=== PATIENT | male | born 1985 | race Caucasian/White ===

== ENCOUNTER 2021-07-03 09:24 | Emergency (ER) | payer MEDICAID ==
[2021-07-03 09:33] VITALS: BP 147/72
--- NOTE | 2021-07-03 09:38 | ED Physician Documentation ---
PD HPI HEENT - Stated complaint Stated Complaint: MOUTH PX/SWELLING - Chief complaint Chief Complaint: Heent - History obtained from History obtained from: Patient - History of Present Illness Timing - onset: How many weeks ago (1) Timing - duration: Weeks (1) Timing - details: Gradual onset, Still present Location: Tooth (left lower molar with pain, and now couple days of swelling/worse pain.) Associated symptoms: No: Fever, Congestion, Swollen nodes Similar symptoms before: Diagnosis (dental infections - says has difficulty getting dental appt as limited availability.) Recently seen: Not recently seen Review of Systems Constitutional: denies: Fever, Chills Nose: denies: Rhinorrhea / runny nose, Congestion Throat: denies: Sore throat Respiratory: denies: Cough PD PAST MEDICAL HISTORY - Past Medical History Cardiovascular: None Endocrine/Autoimmune: None - Present Medications Home Medications: Ambulatory Orders Medication Instructions Recorded Confirmed Clindamycin [Cleocin] 300 mg PO TID 7 Days #20 cap 07/03/21 HYDROcod/ACETAM 5/325 [[place] 5/325] 1 ea PO Q6H PRN #18 tablet 07/03/21 Ibuprofen [Motrin] 600 mg PO TID PRN #20 tab 07/03/21 - Allergies Allergies/Adverse Reactions: Allergies Allergy/AdvReac Type Severity Reaction Status Date / Time No Known Drug Allergies Allergy Verified 07/03/21 09:30 - Social History Does the pt smoke?: No Smoking Status: Never smoker PD ED PE NORMAL - Vitals Vital signs reviewed: Yes - General General: Alert and oriented X 3, Well developed/nourished, Other (appears in pain from tooth/mouth area. ) - HEENT HEENT: Ears normal, Pharynx benign. No: Dentition benign (left lower 2nd molar with decay and gum has swelling and tenderness without fluctuance. Tender to percussion. ) Results - Vitals Vitals: Vital Signs - 24 hr 07/03/21 09:31 Temperature 36.9 C Heart Rate 98 Respiratory 16 Rate Blood Pressure 147/72 H O2 Saturation 97 Oxygen O2 Source Room air PD MEDICAL DECISION MAKING - ED course Complexity details: considered differential, d/w patient Departure - Departure Disposition: 01 Home, Self Care Clinical Impression: Dental infection, Acute oral pain Condition: Stable Record reviewed to determine appropriate education?: Yes Instructions: ED Abscess Dental Follow-Up: [facility] [Provider Group] Prescriptions: Clindamycin [Cleocin] 300 mg PO TID 7 Days #20 cap Ibuprofen [Motrin] 600 mg PO TID PRN #20 tab PRN Reason: Pain HYDROcod/ACETAM 5/325 [[place] 5/325] 1 ea PO Q6H PRN #18 tablet PRN Reason: Pain Comments: Clindamycin antibiotic as directed for infection. Ibuprofen 3 times daily for inflammation and pain. Add Tylenol or Hydrocodone for worse pain. Follow up with dentist for more definitive care of the tooth. The prescriptions were transmitted electronically to [facility] pharmacy in [place]. Discharge Date/Time: 07/03/21 10:11
[2021-07-03] MEDS ORDERED: CLINDAMYCIN 150 MG CAPSULE PO STA (09:52)
[2021-07-03] MEDS ORDERED: NAPROXEN 250 MG TABLET PO STA (09:52)
[2021-07-03] MEDS ORDERED: ACETAMINOPHEN 325 MG TABLET PO STA (09:52)
== END 2021-07-03 10:11 | disposition home or self-care (01) ==
LOC: ED 09:24
DX: K04.7 Periapical abscess without sinus (principal); K08.89 Other specified disorders of teeth and supporting structures; K02.9 Dental caries, unspecified
CPT/HCPCS: 99283; A9270

== ENCOUNTER 2021-07-21 05:57 | Emergency (ER) | payer MEDICAID ==
--- NOTE | 2021-07-21 06:19 | ED Physician Documentation ---
History of Present Illness - Stated complaint Stated Complaint: TOOTH PX - Chief complaint Chief Complaint: Heent - History obtained from History obtained from: Patient - Additonal information Additional information: 36-year-old male with history of poor dentition p/w left lower dental pain X 6 months that is progressively worsened over the past couple days. denies fevers, chills change in voice quality, or trismus. +smoker Review of Systems Constitutional: denies: Fever, Chills Throat: reports: Dental pain / toothache. denies: Sore throat Respiratory: denies: Dyspnea Musculoskeletal: reports: Other (no trismus) PD PAST MEDICAL HISTORY - Past Medical History Past Medical History: No Cardiovascular: None Respiratory: None Neuro: None Endocrine/Autoimmune: None GI: None : None HEENT: None Psych: None Musculoskeletal: None Derm: None - Past Surgical History Past Surgical History: No - Present Medications Home Medications: Ambulatory Orders Medication Instructions Recorded Confirmed Ibuprofen [Motrin] 600 mg PO TID PRN #20 tab 07/03/21 07/21/21 Amox/Clav 875/125 [Augmentin 1 tablet PO Q12H 7 Days #14 tablet 07/21/21 875/125 Tab] - Allergies Allergies/Adverse Reactions: Allergies Allergy/AdvReac Type Severity Reaction Status Date / Time No Known Drug Allergies Allergy Verified 07/21/21 06:06 - Social History Does the pt smoke?: No Smoking Status: Never smoker Does the pt drink ETOH?: No Does the pt have substance abuse?: No - Immunizations Immunizations are current?: No - POLST Patient has POLST: No PD ED PE NORMAL - Vitals Vital signs reviewed: Yes - General General: Alert and oriented X 3, Other (anxious appearing) - HEENT HEENT: Atraumatic, PERRL, EOMI, Other (extremely poor dentition. multiple caries. tolerating secretions. nontender with palpation of submentum. ) - Neck Neck: Supple, no meningeal sign - Derm Derm: Normal color, Warm and dry, Other (mild fluctuance along L lower periodontal molar region) - Neuro Neuro: Alert and oriented X 3 Results - Vitals Vitals: Vital Signs - 24 hr 07/21/21 07/21/21 06:04 06:06 Temperature 98.4 C H 36.9 C Heart Rate 88 88 Respiratory 17 17 Rate Blood Pressure 135/94 H 135/94 H O2 Saturation 98 98 Oxygen O2 Source Room air PD MEDICAL DECISION MAKING - ED course ED course: 36-year-old man presents with concern about chronic dental caries with evidence of chronic infection on examination. Offered dental block and pain control but patient declined, requesting only antibiotics. Advised him to follow-up with a dentist immediately. Return precautions given. Departure - Departure Disposition: Home, Self Care Clinical Impression: Dental infection Condition: Good Instructions: Decay Tooth Prescriptions: Amox/Clav 875/125 [Augmentin 875/125 Tab] 1 tablet PO Q12H 7 Days #14 tablet Comments: You are seen in the emergency department for evaluation of chronic dental infection. You need to see a dentist right away. Please take your antibiotics as prescribed and return the emergency department if you have any new or worsening symptoms or other concerns.
[2021-07-21 06:25] VITALS: BP 134/97
== END 2021-07-21 06:24 | disposition home or self-care (01) ==
LOC: ED 05:57
DX: K02.9 Dental caries, unspecified (principal)
CPT/HCPCS: 99282; 99283

== ENCOUNTER 2022-10-28 17:52 | Emergency (ER) | payer OTHER, MEDICAID ==
[2022-10-28] MEDS ORDERED: ACETAMINOPHEN 500 MG TABLET PO STA (18:06)
[2022-10-28] MEDS ORDERED: oxyCODONE 5 MG TABLET PO STA (18:06)
--- NOTE | 2022-10-28 18:07 | ED Physician Documentation ---
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 2 days ago he slipped and landed on his tailbone and had a severe persistent tailbone pain that has not been responsive to ibuprofen. No other injuries. He does note that he has a lot of pain when he defecates. Review of Systems Constitutional: reports: Reviewed and negative Eyes: reports: Reviewed and negative Nose: reports: Reviewed and negative Throat: reports: Reviewed and negative PD PAST MEDICAL HISTORY - Past Medical History Cardiovascular: None Respiratory: None Neuro: None Endocrine/Autoimmune: None GI: None : None HEENT: None Psych: None Musculoskeletal: None Derm: None - Past Surgical History Past Surgical History: No - Present Medications Home Medications: Ambulatory Orders Medication Instructions Recorded Confirmed Ibuprofen [Motrin] 600 mg PO TID PRN #20 tab 07/03/21 07/21/21 Amox/Clav 875/125 [Augmentin 1 tablet PO Q12H 7 Days #14 tablet 07/21/21 875/125 Tab] Oxycodone HCl/Acetaminophen 1 - 2 each PO Q6H PRN #14 tablet 10/28/22 [Percocet 5-325 mg Tablet] polyethylene glycoL 3350 [Miralax] 17 gm PO DAILY PRN #1 each 10/28/22 - Allergies Allergies/Adverse Reactions: Allergies Allergy/AdvReac Type Severity Reaction Status Date / Time No Known Drug Allergies Allergy Verified 10/28/22 18:01 - Social History Does the pt smoke?: No Smoking Status: Never smoker Does the pt drink ETOH?: No Does the pt have substance abuse?: No - Immunizations Immunizations are current?: No - POLST Patient has POLST: No PD ED PE NORMAL - Vitals Vital signs reviewed: Yes - General General: Alert and oriented X 3, Other (He appears uncomfortable and is laying on his side.) - Abdomen Abdomen: Non tender - Back Back: Other (Tender over the low sacrum and coccyx, no lumbar spine tenderness or other pelvic tenderness.) - Neuro Neuro: Alert and oriented X 3, Normal speech Eye Opening: Spontaneous Motor: Obeys Commands Verbal: Oriented GCS Score: 15 Results - Vitals Vitals: Vital Signs - 24 hr 10/28/22 17:56 Temperature 36.1 C L Heart Rate 129 H Respiratory 18 Rate Blood Pressure 149/72 H O2 Saturation 100 Oxygen O2 Source Room air PD Medical Decision Making - ED course ED course: He presents with significant pain from a sacral injury. The x-ray is negative but I presume he probably has an occult fracture there. L&I paperwork was completed. Departure - Departure Disposition: 01 Home, Self Care Clinical Impression: Sacral contusion Qualifiers: Encounter type: initial encounter Qualified Code(s): S30.0XXA - Contusion of lower back and pelvis, initial encounter Condition: Good Record reviewed to determine appropriate education?: Yes Instructions: ED Contusion Back Prescriptions: polyethylene glycoL 3350 [Miralax] 17 gm PO DAILY PRN #1 each PRN Reason: Constipation Oxycodone HCl/Acetaminophen [Percocet 5-325 mg Tablet] 1 - 2 each PO Q6H PRN #14 tablet PRN Reason: pain Comments: I sent your prescription electronically to [facility] in [place]. As discussed although the x-ray was negative I suspect you probably have a hairline fracture. That requires no specific treatment, but return for new or worsening symptoms and follow-up with your doctor in a week to assess healing. I am prescribing a short course of narcotic pain medication for you. These are potentially dangerous and addictive medications that should be used carefully. These medications may constipate you. Take an keiw-iwg-dcpvuva stool softener (docusate) twice daily with plenty of water while taking these medications. If you go 24 hours without a bowel movement, take mnvj-wan-ogpcjof miralax, per package instructions. Do not drink or drive while taking these medications. If you received narcotic or sedating medications while in the emergency department, do not drive for 24 hours. Store this medication in a safe, secure place and out of reach of children. It is a violation of federal law to give or sell this medication to another person or to use in a manner other than prescribed. The ED will not refill narcotic prescriptions, including prescriptions lost or stolen. To dispose of unwanted medications: 1. [facility] at [address] in [place] has a medication drop box. They accept prescription medications (in pill form) Sunday through Sunday 9:00 a.m. to 5:00 p.m. 2. The [facility] [employer] accepts prescription medications (in pill form only) for disposal year round. Call for more information. 3. Contact the [facility] for the next [facility] sponsored prescription drug collection event. , [phone], or [phone]; Note that many narcotic pain relievers also contain Tylenol/acetaminophen. Please ensure that your total dose of acetaminophen from all sources does not exceed 3 g (3000 mg) per day.
--- NOTE | 2022-10-28 18:37 | XRAY Report ---
PROCEDURE: Sacrum/Coccyx INDICATIONS: Back injury TECHNIQUE: 3 views of the sacrum and coccyx acquired. COMPARISON: None FINDINGS: Bones: No sacral or coccygeal fracture identified. Sacral arcuate lines are intact and symmetric. No findings of coccygeal subluxation/dislocation. No suspicious bony lesions. Soft tissues: Visualized bowel gas pattern is normal. No suspicious soft tissue densities. IMPRESSION: No acute finding. Reviewed by: Porter Olvera MD on 10/28/2022 6:36 PM PST Approved by: Porter Olvera MD on 10/28/2022 6:36 PM PST Station ID: [id number]
[2022-10-28] MEDS ORDERED: oxyCODONE/ACET 5/325 Prepack 4 PO STA (18:54)
[2022-10-28 19:39] VITALS: BP 130/80
--- NOTE | 2022-10-29 10:30 | ED Physician Documentation ---
ED Addendum - Addendum Addendum: 10/29/22 10:29 [facility] pharmacy called. They do not have the oxycodone in stock. They have hydrocodone available. I change the prescription to that and transmitted it to the pharmacy and canceled the oxycodone. The patient did not have any allergies to medicines so I believe this will be a fair substitute.
== END 2022-10-28 19:00 | disposition home or self-care (01) ==
LOC: ED 17:52
DX: S30.0XXA Contusion of lower back and pelvis, initial encounter (principal); W17.89XA Other fall from one level to another, initial encounter; Y99.0 Civilian activity done for income or pay
CPT/HCPCS: 1040M; 72220; 99282; 99283; A9270

== ENCOUNTER 2023-02-28 10:53 | Emergency (ER) | payer OTHER, MEDICAID ==
[2023-02-28] MEDS ORDERED: BUPIVACAINE 0.5% PF 10 ML VIAL SUBQ STA (12:13)
--- NOTE | 2023-02-28 12:14 | XRAY Report ---
PROCEDURE: Hand 3 View LT INDICATIONS: finger lacerations TECHNIQUE: 3 views of the hand(s) acquired. COMPARISON: None. FINDINGS: Bones: No fractures or dislocations. No suspicious bony lesions. Soft tissues: No suspicious soft tissue calcifications or masses. IMPRESSION: No visualized acute fracture or dislocation. However, occult injury cannot be excluded. Recommend david rt interval imaging follow-up in 7-10 days as clinically indicated for additional evaluation. Reviewed by: Martha Cook MD on 02/28/2023 12:12 PM PDT Approved by: Martha Cook MD on 02/28/2023 12:12 PM PDT Station ID: [id number]
[2023-02-28 12:21] VITALS: BP 124/72
--- NOTE | 2023-02-28 12:52 | ED Physician Documentation ---
PD HPI UPPER EXT INJURY - Stated complaint Stated Complaint: LT FINGER LAC - Chief complaint Chief Complaint: Laceration - History obtained from History obtained from: Patient, Family - History of Present Illness Location: Left, Hand, Finger (index and middle) Type of injury: Laceration Where injury occurred: Work Timing - onset: Today Timing - duration: Minutes Timing - details: Abrupt onset, Still present Improved by: Rest, Immobilization Worsened by: Moving, Palpating Associated symptoms: No: Weakness, Numbness, Tingling, Swelling, Discolored Contributing factors: No: Anticoagulated Similar symptoms before: Diagnosis (tendon laceration) Recently seen: Not recently seen - Additonal information Additional information: 37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 He felt a clinking as the saw went across to his hand. He felt that he had cut down to the bone. He notices some bright white material under the skin where he has cut his index finger on the left side. He is having a difficult time raising his finger up without pain. He has previously injured his left thumb requiring tendon surgery. Review of Systems Constitutional: denies: Fever Ears: denies: Ear pain Nose: denies: Congestion Throat: denies: Sore throat Respiratory: denies: Cough GI: denies: Vomiting Skin: reports: Laceration (s) Musculoskeletal: reports: Extremity pain. denies: Neck pain, Back pain Neurologic: reports: Focal weakness (diff to lift index secondary to pain). denies: Generalized weakness, Numbness PD PAST MEDICAL HISTORY - Past Medical History Past Medical History: Yes Cardiovascular: None Respiratory: None Neuro: None Endocrine/Autoimmune: None GI: None : None HEENT: None Psych: None Musculoskeletal: None Derm: None - Past Surgical History Past Surgical History: No - Present Medications Home Medications: Ambulatory Orders Medication Instructions Recorded Confirmed Ibuprofen [Motrin] 600 mg PO TID PRN #20 tab 07/03/21 07/21/21 Amox/Clav 875/125 [Augmentin 1 tablet PO Q12H 7 Days #14 tablet 07/21/21 875/125 Tab] polyethylene glycoL 3350(BULK) 17 gm PO DAILY PRN #1 each 10/28/22 [Miralax] HYDROcod/ACETAM 5/325 [[place] 5/325] 1 ea PO Q6H PRN #12 tablet 10/29/22 cephALEXin [Keflex] 500 mg PO Q6H #20 cap 02/28/23 - Allergies Allergies/Adverse Reactions: Allergies Allergy/AdvReac Type Severity Reaction Status Date / Time No Known Drug Allergies Allergy Verified 02/28/23 11:00 - Social History Does the pt smoke?: No Smoking Status: Never smoker Does the pt drink ETOH?: No Does the pt have substance abuse?: No - Immunizations Immunizations are current?: No - POLST Patient has POLST: No PD ED PE NORMAL - Vitals Vital signs reviewed: Yes (hypertensive ) - General General: Alert and oriented X 3, No acute distress, Well developed/nourished - HEENT HEENT: Atraumatic, PERRL, EOMI - Respiratory Respiratory: No respiratory distress - Derm Derm: Normal color, Warm and dry, No rash - Extremities Extremities: No deformity, No edema, Other (There are 2 lacerations.The laceration involving the middle finger is without evidence of deeper structure involvement. The index finger appears to have a laceration at the MCP joint but extends through the extensor tendon. Function remains intact with significant pain.) - Neuro Neuro: Alert and oriented X 3, gusset ripper 2-12 intact, No sensory deficit, Normal speech Eye Opening: Spontaneous Motor: Obeys Commands Verbal: Oriented GCS Score: 15 - Psych Psych: Normal mood, Normal affect Results - Vitals Vitals: Vital Signs - 24 hr 02/28/23 02/28/23 02/28/23 10:56 12:07 12:20 Temperature 36 C L Heart Rate 100 99 Respiratory 16 16 18 Rate Blood Pressure 152/95 H 124/72 O2 Saturation 100 100 02/28/23 02/28/23 12:39 13:00 Temperature Heart Rate Respiratory 17 17 Rate Blood Pressure O2 Saturation Oxygen O2 Source Room air - Rads (name of study) hand Relevant Findings:: Prelim report reviewed (Impression: No visualized acute fracture or dislocation.), EMP independent interpretation of test Procedures - Laceration (location) Left hand Length in cm: 5.5 Wound type: Irregular, Flap, Clean Neurovascular status: Sensory intact, Motor intact, Vascular intact Tendon involvement: Tendon Injury (To the left index finger there is an obvious laceration to the extensor tendon. The laceration appears complete but function is intact) Anesthesia: Marcaine 0.5% Wound preparation: Hibiclens, Irrigated copiously NS, Wound explored, To the base Skin layer closure: Nylon, Interrupted, Size #-0 - enter number ([phone]) Other: Patient tolerated well, No complications, Neurovascular intact, Dressing applied, Tetanus UTD - Splint (location) - Minor L hand Splint applied by: Tech Type of splint: Fiberglass, Short arm Other: Patient tolerated well, No complications, Neurovascular intact, Good alignment PD Medical Decision Making - ED course Complexity details: reviewed old records, reviewed results, re-evaluated patient, considered differential, d/w patient, d/w family, d/w legal nurse consultant (Dr. Gibbs hand surgery [facility] communications specialist recommends suturing, splinting and follow up with her in clinic. ) Reviewed Lab Results: We reviewed a plain film of the patient's hand which did not demonstrate any obvious involvement of bone ED course: 37-year-old Cristi Rosenthal has lacerated his left hand with a chainsaw and this has cut right over the extensor tendon of the index finger. The extensor tendon appears to be lacerated and despite this he does have function for extension of his finger. The proximal aspect of the tendon laceration is visible and not retracted. Extension is painful and not tested against much resistance. His wounds are cleansed, irrigated, reapproximated and sutured. A dressing is applied and the patient is placed into an extensor splint. The hand surgeon on-call at [facility] Dr. Sarah Gibbs is consulted in the case and recommends follow-up in her clinic in 2 days time. Departure - Departure Disposition: 01 Home, Self Care Clinical Impression: Extensor tendon laceration of finger with open wound Qualifiers: Encounter type: initial encounter Qualified Code(s): S56.429A - Laceration of extensor muscle, fascia and tendon of unspecified finger at forearm level, initial encounter Finger laceration involving tendon Qualifiers: Encounter type: initial encounter Qualified Code(s): S61.219A - Laceration without foreign body of unspecified finger without damage to nail, initial encounter Condition: Stable Instructions: ED Laceration Hand, ED Laceration Tendon Follow-Up: Sarah Mills MD [Physician No Access] - Prescriptions: cephALEXin [Keflex] 500 mg PO Q6H #20 cap Comments: Cirsti today looks like you have a laceration to the extensor tendon of your left index finger. This may require further repair and a follow-up with the hand surgeon is indicated. Call her office today to make an appointment for Sunday afternoon. In the meantime [facility] [place]. Forms: Activity restrictions Discharge Date/Time: 02/28/23 13:36
== END 2023-02-28 13:36 | disposition home or self-care (01) ==
LOC: ED 10:53
DX: S66.321A Laceration of extensor muscle, fascia and tendon of left index finger at wrist and hand level, initial encounter (principal); W29.3XXA Contact with powered garden and outdoor hand tools and machinery, initial encounter; Y93.H2 Activity, gardening and landscaping
CPT/HCPCS: 12002; 29125; 36415; 99283

== ENCOUNTER 2023-12-21 11:55 | Outpatient (CLI) | payer MEDICAID, OTHER | END 2023-12-21 23:59 | disposition left against medical advice (07) | LOC: EMS 11:55 | DX: Z04.1 Encounter for examination and observation following transport accident (principal) ==